=== PATIENT | male | born 1995 | race Caucasian/White ===

== ENCOUNTER 2021-11-05 15:51 | Emergency (ER) | payer OTHER, SELFPAY ==
--- NOTE | ~2021-11-05 | US_ITS ---
US scrotum doppler DATE: 11/05/2021 16:37 INDICATION: Scrotal pain TECHNIQUE: Real-time and color flow imaging and Doppler analysis of the scrotal contents COMPARISON: None FINDINGS: Right testicle measures 4.9 x 2.4 x 2.8 cm. Left testicle measures 3.9 x 2.3 x 2.7 cm. No l eft or right testicular mass lesion is noted. There is normal color flow signal and vascularity of kane th testicles, without evidence of torsion. The right epididymis appears normal. There is asymmetric enlargement of the left epididymis and increased vascularity, consistent with lef t epididymitis No hydrocele or varicocele is identified. IMPRESSION: Left epididymitis Reviewed, dictated and finalized at [facility] Reviewed, dictated and finalized at [facility]. IMPRESSION: Left epididymitis
[2021-11-05 15:54] VITALS: BP 133/73; PULSE 64; RESP 14; TEMP 36.8; O2SAT 100
--- NOTE | 2021-11-05 16:01 | ED.MALEGU ---
HPI - Male Genitourinary General Chief complaint: Urogenital-Male Stated complaint: left testicle swollen Time Seen by Provider: 11/05/21 15:58 History of Present Illness HPI Narrative: 26-year-old male presents to the emergency room for evaluation of left testicle pain. Patient states the pain has been present since Monday. Patient also admits to unprotected sex with multiple partners recently. Denies any dysuria. Denies injury or trauma to the scrotum. Related Data Allergies Allergy/AdvReac Type Severity Reaction Status Date / Time No Known Allergies Allergy Unknown Verified 12/29/14 08:16 Review of Systems Review of Systems: CONSTITUTIONAL: Denies fever, chills, or sweats. EYES: Denies visual changes, redness, or discharge. ENT: Denies rhinorrhea, congestion, sore throat, or otalgia. CARDIOVASCULAR: Denies chest pain, palpitations, or edema. RESPIRATORY: Denies cough or dyspnea. GASTROINTESTINAL: Denies abdominal pain, nausea, vomiting, or diarrhea. GENITOURINARY: Reports testicular pain SKIN: Denies rash or itching. MUSCULOSKELETAL: Denies back pain, joint pain, or myalgia. NEUROLOGIC: Denies headache, numbness, dizziness, or weakness. PSYCHIATRIC: Denies anxiety or depression. Exam Narrative: GENERAL: Well-appearing, well-nourished, no physical limitations, and in no acute distress. HEAD: Normocephalic, atraumatic. EYES: Conjunctivae normal, PERRLA and EOMI. CHEST: Clear to auscultation. No respiratory distress. No wheezes rales or rhonchi. No tenderness. HEART: Regular rate and rhythm. No murmur heard. Normal peripheral pulses. ABDOMEN: Soft, nontender, nondistended, normal active bowel sounds. : Tenderness to posterior left testicle, positive cremasteric reflex bilaterally BACK: No CVA tenderness; No cervical/thoracic/lumbar tenderness, step-offs, bony abnormality; FROM EXTREMITIES: Normal range of motion. No edema. No clubbing or cyanosis SKIN: Warm, dry, no rash. No noted wounds NEURO: No focal deficits. Alert and oriented x3. MAEW. CN's II-XI intact bilaterally, normal gait PSYCH: Cooperative. Normal mood and affect. Course Vital Signs Vital signs: Vital Signs Temperature 36.8 C 11/05/21 15:54 Pulse Rate 64 11/05/21 15:54 Respiratory Rate 14 11/05/21 15:54 Blood Pressure 133/73 11/05/21 15:54 Pulse Oximetry 100 11/05/21 15:54 Oxygen Delivery Room Air 11/05/21 15:54 Temperature 36.8 C 11/05/21 15:54 Pulse Rate 64 11/05/21 15:54 Respiratory Rate 14 11/05/21 15:54 Blood Pressure 133/73 11/05/21 15:54 Pulse Oximetry 100 11/05/21 15:54 Oxygen Delivery Room Air 11/05/21 15:54 Discharge Plan Discharge Clinical Impression: Epididymitis Patient Disposition: Home, Self-Care Condition: Stable Instructions: Antibiotic Form, Epididymitis (ED) Prescriptions: New doxycycline monohydrate 100 mg capsule 100 mg PO BID 7 Days Qty: 14 0RF Follow-up/Referrals: Margarito,Noreen Callejas MD [Primary Care Provider] - Time of Disposition: 17:07
--- NOTE | 2021-11-05 16:05 | PC.NURSE ---
pt to US via w/c
[2021-11-05] MEDS: cefTRIAXone 1 GM VIAL 0.5 GM IM (17:59)
[2021-11-05] MEDS: LIDOCAINE HCL 1% LOCAL INJ 20 ML VIAL (18:00)
== END 2021-11-05 18:13 | disposition home or self-care (01) ==
LOC: ANHED 17:23
PROVIDERS: Emergency Provider Nurse Practitioner Family; PCP Internal Medicine
DX: N45.1 Epididymitis (principal)
CPT/HCPCS: 76870; 93976; 96372; 99284; J0696